=== PATIENT | male | born 1950 | race African-American/Black ===

== ENCOUNTER 2021-08-16 14:49 | Emergency (ER) | payer OTHER, MEDICARE, SELFPAY ==
[2021-08-16 14:58] VITALS: BP 133/59; PULSE 65; RESP 17; TEMP 36.7; O2SAT 96; BMI 18.4
--- NOTE | 2021-08-16 15:05 | W.ED.WEAKNES ---
HPI - Weakness General: Chief complaint: Weakness Stated complaint: N/V; WEAKNESS Time Seen by Provider: 08/16/21 14:55 History of Present Illness: HPI Narrative: This patient was transported to the emergency department by EMS. 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 He states he felt sick at his stomach and vomited dark coffee ground looking substance. He states that this happened several times. He states that he then got out of truck and attempted to go into the store and felt lightheaded and weak. EMS was then notified. He states that he is not any dark tarry stools or bloody stools. He does not drink alcohol. He does not smoke cigarettes occasionally smokes a cigar. He does not take nonsteroidals. He has no history of gastrointestinal bleeding. He is otherwise takes antihypertensives. Denies any chest pain shortness of breath etc. Associated symptoms: Reports vomiting; Denies chest pain, chills, melena, dysuria, easy bruising, fever(s) or headache(s) Review of Systems Const: Denies: fever(s) or chills Eyes: Denies: change in vision ENMT: Denies: throat pain, odynophagia or hoarseness Card: Denies: chest pain, palpitations, irregular heart rhythm or edema Resp: Denies: dyspnea, productive cough or non-productive cough GI: Reports: vomiting and coffee ground emesis; Denies: bloating, GI cramping, rectal swelling, rectal itching, hematochezia or melena : Denies: flank pain, difficulty urinating or dysuria Musc: Denies: neck pain, back pain, extremity pain, extremity swelling or joint swelling Skin/Breast: Denies: rash Neuro: Denies: headache(s), numbness in extremities, weakness in extremities, sensory changes or lack of coordination Psych: Denies: depression or mood swings Endo: Denies: polyuria or polydipsia Deon/Lymph: Denies: easy bruising or easy bleeding Physical Exam Const: COMMON NORMALS: patient oriented x3 and no limitations GENERAL APPEARANCE: cooperative ORIENTATION/CONSCIOUSNESS: Yes awake HENMT: COMMON NORMALS: normocephalic and Normal external nose present HEAD & SCALP: normal to inspection and normocephalic FACE & SINUS: normal facial exam NOSE: Normal external nose present THROAT: other (Mask per protocol) Eye: COMMON NORMALS: Equal, round and reactive pupils present, EOMs intact bilaterally and no scleral icterus PUPIL: Yes Equal, round and reactive pupils present Neck/C-Spine: COMMON NORMALS: full ROM, no lymphadenopathy, Thyroid normal and No carotid bruits THYROID: Thyroid normal Lymph: LYMPHATIC: no lymphadenopathy noted Chest: COMMONS NORMALS: normal inspection of the chest Resp: COMMON NORMALS: normal respiratory effort, No retractions, No use of accessory muscles and clear to auscultation bilaterally AUSCULTATION: clear to auscultation bilaterally Cardio: COMMON NORMALS: regular rate, No murmurs present (Cardio) and Peripheral pulses 2+ throughout RATE: regular rate PERIPHERAL PULSES: Peripheral pulses 2+ throughout GI: COMMON NORMALS: Normal to inspection, nondistended, normoactive bowel sounds present, Soft to palpation, non-tender, No hepatosplenomegaly present and no masses PALPATION: Yes Soft to palpation and Yes No hepatosplenomegaly present : COMMON NORMALS: Yes no CVA tenderness BLADDER/KIDNEY EXAM: Yes no CVA tenderness Back/Pelvis: COMMON NORMALS: no CVA tenderness, thoracic and lumbar spine normal to inspection, no thoracic nor lumbar tenderness and thoraco-lumbar ROM normal Extremity: COMMON NORMALS: normal to inspection, full ROM, capillary refill normal, no joint enlargement, no calf tenderness and no pedal edema Neuro: COMMON NORMALS: patient oriented x3, moves all extremities, no focal motor deficits and no sensory deficits noted SPEECH: speech normal GAIT: Yes Normal gait present Course Reevaluation(s): Reevaluation #1: Patient's labs are noted. He is anemic as well as has evidence of transaminitis. We will going proceed with a CT scan. Reevaluation #2: Patient is clinically improved. He has been drinking fluids without any difficulty. His vital signs are otherwise stable. I reviewed his current findings and imaging studies with the patient and discussed treatment options. I informed him that he would have to go to a larger facility which had capabilities to do ERCP and additional diagnostic work-up to evaluate his biliary tract. He acknowledged that discussion and then asked me to share that information with his on speaker phone. I did so. He would like to be discharged and his will pick him up either later tonight or first thing in the morning to take him home to [place] and at that point they will seek additional care at one of the larger facilities in that community. I will provide them with medical information regarding laboratories, imaging studies etc. so that they will have that available to them. He is currently clinically stable to be discharged and acknowledges the need for close follow-up. Vital Signs: Vital signs: Vital Signs Temperature 98.0 F 08/16/21 14:58 Pulse Rate 65 08/16/21 14:58 Respiratory Rate 17 08/16/21 14:58 Blood Pressure 133/59 08/16/21 14:58 Pulse Oximetry 96 08/16/21 14:58 MDM - Weakness Lab Data: Attestation: I reviewed the patient's lab results. Labs: Lab Results 08/16/21 08/16/21 08/16/21 15:15 15:15 15:15 WBC 6.0 10^3/uL 10^3/ uL (4.0-10.0) RBC 3.21 10^6/uL L 10 ^6/uL (4.1-5.3) Hgb 9.8 g/dL L g/dL (11.7-16.6) Hct 29.6 % L % (42.0-52.0) MCV 92.2 fl fl (80-94) MCH 30.5 pg pg (28.0-34.0) MCHC 33.1 g/dL g/dL (30.0-36.0) RDW 16.1 % H % (12.1-15.1) Plt Count 221 10^3/cmm 10^3 /cmm (130-400) MPV 10.0 fL fL (7.4-10.4) Neut % (Auto) 75.5 % % Lymph % (Auto) 9.4 % % [place] % (Auto) 11.9 % % Eos % (Auto) 1.7 % % Baso % (Auto) 0.8 % % Neut # (Auto) 4.56 10^3/uL 10^3 /uL (1.8-7.7) Lymph # (Auto) 0.6 10^3/uL L 10^ 3/uL (0.8-4.8) [place] # (Auto) 0.7 10^3/uL 10^3/ uL (0.2-0.9) Eos # (Auto) 0.1 10^3/uL 10^3/ uL (0.0-0.8) Baso # (Auto) 0.1 10^3/uL 10^3/ uL (0.0-0.1) Nucleated RBC % (a uto) 0 % % Nucleated RBCs # 0.0 /100WBC /100W BC PT 13.30 SECONDS SEC ONDS (12.1-14.9) INR 0.98 (0.8-1.2) Sodium 138 mmol/L mmol/L (136-145) Potassium 3.4 mmol/L L mmol /L (3.5-5.1) Chloride 101 mmol/L mmol/L (98-107) Carbon Dioxide 28 mmol/L mmol/L (22-29) Anion Gap 12.4 (5-19) BUN 12 mg/dL mg/dL (8-23) Creatinine 0.5 mg/dL L mg/dL (0.7-1.2) GFR Calculation Not Reportable Glucose 175 mg/dL H mg/dL (65-115) Calculated Osmolal ity 290 mOsm/kg mOsm/ kg (285-295) Calcium 8.1 mg/dL L mg/dL (8.5-10.5) Total Bilirubin 5.4 mg/dL H mg/dL (0.15-1.2) AST 128 U/L H U/L (0-40) ALT 271 U/L H U/L (0-41) Alkaline Phosphata se 257 IU/L H IU/L (40-130) Total Protein 5.5 g/dL L g/dL (6.6-8.7) Albumin 3.1 g/dL L g/dL (3.5-5.2) Globulin 2.4 g/dL g/dL (1.3-4.6) Urine Color Urine Appearance Urine pH Ur Specific Gravit y Urine Protein Urine Glucose (UA) Urine Ketones Urine Blood Urine Nitrate Urine Bilirubin Urine Urobilinogen Ur Leukocyte Rina ase Urine RBC Urine WBC Ur Squamous Epith Cells Amorphous Sediment Urine Bacteria Urine Mucus 08/16/21 15:15 WBC RBC Hgb Hct MCV MCH MCHC RDW Plt Count MPV Neut % (Auto) Lymph % (Auto) [place] % (Auto) Eos % (Auto) Baso % (Auto) Neut # (Auto) Lymph # (Auto) [place] # (Auto) Eos # (Auto) Baso # (Auto) Nucleated RBC % (a uto) Nucleated RBCs # PT INR Sodium Potassium Chloride Carbon Dioxide Anion Gap BUN Creatinine GFR Calculation Glucose Calculated Osmolal ity Calcium Total Bilirubin AST ALT Alkaline Phosphata se Total Protein Albumin Globulin Urine Color Dark yellow (Yellow) Urine Appearance Sl hazy (CLEAR) Urine pH 7 (5-7) Ur Specific Gravit y 1.015 (1.005-1.030) Urine Protein Trace (Negative) Urine Glucose (UA) Trace H (Normal) Urine Ketones 1+ H (Negative) Urine Blood Neg (Negative) Urine Nitrate Negative (Negative) Urine Bilirubin 2+ H (Negative) Urine Urobilinogen 4 mg/dL H mg/dL (Negative) Ur Leukocyte Rina ase Negative (Negative) Urine RBC None /hpf /hpf (0-2) Urine WBC Rare /hpf /hpf (0-5) Ur Squamous Epith Cells 0-4 /hpf H /hpf (0-5) Amorphous Sediment Trace /hpf /hpf Urine Bacteria Trace /hpf /hpf (NONE) Urine Mucus Trace /hpf /hpf Imaging Data^: CT Abd/Pel: Radiologist's impression: CT abdomen pelvis showed concerns for gallbladder wall thickening with sludge and ultrasound is recommended. No other acute pathology is noted at this time. 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 Discharge Plan Discharge Condition: Stable Prescriptions: New Zofran 4 mg tablet 4 mg PO Q8H 3 Days Qty: 9 RF: 0 Discharge Orders: Discharge ED (Routine); Ordered 08/16/21 Ordered By: Asael Murillo Discharge Diet: Advance as tolerated and Low Salt Discharge Activity: Limit activity as instructed Activity Restrictions/Additional Instructions: Upon return home call your physician to arrange additional evaluation and gastroenterology referral. This should be completed in the next 3 to 5 days. If you have worsening symptoms return to the nearest emergency department. We have prescribed medication to use for nausea. We have provided discs of your images and also your laboratory results for use by your physicians in [place]. Coding Level of Care Code ED Custom Ski Maker for Chg Fwd Exam Comprehensive
[2021-08-16 15:48] LABS: Basophils # 0.1 10^3/uL (0.0-0.1); Basophils % 0.8 %; Eosinophils # 0.1 10^3/uL (0.0-0.8); Eosinophils % 1.7 %; Hematocrit 29.6 % (42.0-52.0); Hemoglobin 9.8 g/dL (11.7-16.6); Lymphocytes # 0.6 10^3/uL (0.8-4.8); Lymphocytes % 9.4 %; Mean Corpuscular HGB Conc 33.1 g/dL (30.0-36.0); Mean Corpuscular Hemoglobin 30.5 pg (28.0-34.0); Mean Corpuscular Volume 92.2 fl (80-94); Monocytes # 0.7 10^3/uL (0.2-0.9); Monocytes % 11.9 %; Neutrophils # 4.56 10^3/uL (1.8-7.7); Neutrophils % 75.5 %; Nucleated Red Blood Cells % 0 %; Platelet Count 221 10^3/cmm (130-400); Red Blood Count 3.21 10^6/uL (4.1-5.3); Red Cell Distribution Width 16.1 % (12.1-15.1)
[2021-08-16] MEDS: pantoprazole 40 mg SDV IVP (15:48)
[2021-08-16 15:54] LABS: INR 0.98 (0.8-1.2)
[2021-08-16 15:59] LABS: Urine Appearance SL Hazy (CLEAR); Urine Color Dark Yellow (Yellow)
[2021-08-16 16:00] LABS: Add Urine Microscopic? YES; Bilirubin Urine 2+ (Negative); Blood Urine Neg (Negative); Glucose Urine UA Trace (Normal); Ketones Urine 1+ (Negative); Leukocyte Esterase Urine Negative (Negative); Nitrate Urine Negative (Negative); Protein Urine Trace (Negative); Specific Gravity, Urine 1.015 (1.005-1.030); Urobilinogen Urine 4 mg/dL (Negative); pH Urine 7 (5-7)
[2021-08-16 16:02] LABS: Amorphous Sediment Urine TRACE /hpf; Bacteria Urine TRACE /hpf; Mucus Urine TRACE /hpf; Squamous Epithelial Cell Urine 0-4 /hpf (0-5); WBC Urine RARE /hpf (0-5)
[2021-08-16 16:03] LABS: Add Urine Culture? No; Alanine Aminotransferase 271 U/L (0-41); Albumin Level 3.1 g/dL (3.5-5.2); Alkaline Phosphatase 257 IU/L (40-130); Anion Gap 12.4 (5-19); Aspartate Amino Transferase 128 U/L (0-40); Blood Urea Nitrogen 12 mg/dL (8-23); Calcium 8.1 mg/dL (8.5-10.5); Carbon Dioxide 28 mmol/L (22-29); Chloride 101 mmol/L (98-107); Globulin 2.4 g/dL (1.3-4.6); Glucose 175 mg/dL (65-115); Osmolality Calculated 290 mOsm/kg (285-295); Potassium 3.4 mmol/L (3.5-5.1); Sodium 138 mmol/L (136-145); Total Bilirubin 5.4 mg/dL (0.15-1.2); Total Protein 5.5 g/dL (6.6-8.7)
--- NOTE | 2021-08-16 16:28 | CTR_ITS ---
PROCEDURE INFORMATION: Exam: CT Abdomen And Pelvis With Contrast Exam date and time: 08/16/2021 4:28 PM Age: 70 years old Clinical indication: Abdominal pain; Additional info: Pain and transaminitis TECHNIQUE: Imaging protocol: Computed tomography of the abdomen and pelvis with contrast. Radiation optimization: All CT scans at this facility use at least one of these dose optimization techniques: automated exposure control; mA and/or kV adjustment per patient size (includes targeted exams where dose is matched to clinical indication); or iterative reconstruction. Contrast material: OMNI 300; Contrast volume: 75 ml; Contrast route: INTRAVENOUS (IV); COMPARISON: No relevant prior studies available. RADIATION DOSE METRICS: Total DLP (mGy-cm): 1349.02 FINDINGS: Lungs: Right lower lobe atelectasis. Liver: Normal. No mass. Gallbladder and bile ducts: Gallbladder appears somewhat prominent with suggestion of wall thickening and biliary sludge, ultrasound could further evaluate this. Intrahepatic biliary dilation. Pancreas: Pancreatic duct dilated to 6 mm without obstructing lesion. Spleen: Normal. No splenomegaly. Adrenal glands: Left adrenal 2.5 cm nodule, dedicated nonemergent adrenal imaging advised. Kidneys and ureters: Several right kidney cysts, negative for follow-up advised. Stomach and bowel: Large amount of poorly defined material in the stomach likely reflects ingested food contents, please correlate clinically. Appendix: No evidence of appendicitis. Intraperitoneal space: Unremarkable. No free air. No significant fluid collection. Vasculature: Unremarkable. No abdominal aortic aneurysm. Lymph nodes: Unremarkable. No enlarged lymph nodes. Urinary bladder: Unremarkable as visualized. Reproductive: Unremarkable as visualized. Bones/joints: Unremarkable. No acute fracture. Soft tissues: Unremarkable. CT/CT abdomen pelvis w con* [id number] IMPRESSION: 1. Gallbladder appears somewhat prominent with suggestion of wall thickening and biliary sludge, ultrasound could further evaluate this. 2. Pancreatic duct dilated to 6 mm without obstructing lesion. 3. Several right kidney cysts, negative for follow-up advised. 4. Left adrenal 2.5 cm nodule, dedicated nonemergent adrenal imaging advised. 5. Right lower lobe atelectasis. 6. Intrahepatic biliary dilation. 7. Large amount of poorly defined material in the stomach likely reflects ingested food contents, please correlate clinically. COMMENTS: Consistent with the [employer]'s Incidental Findings Committee white paper (J Am Eduardo Radiol 2018): Any incidental renal lesion less than 1 cm or classified as too small to characterize, or any incidental cystic renal lesion characterized as simple-appearing, is likely benign. No follow-up imaging is recommended for these lesions per consensus recommendations based on imaging criteria. Radiation Dose CTDIVOL = (mGy): DLP = 1349.02 (mGy-cm)
[2021-08-16] MEDS: iohexol 300 mg/mL 100 mL Btl IV (17:08)
--- NOTE | 2021-08-16 18:53 | USR_ITS ---
PROCEDURE INFORMATION: Exam: US Abdomen, Limited; Right Upper Quadrant Exam date and time: 08/16/2021 6:53 PM Age: 70 years old Clinical indication: Abdominal pain; Acute; Additional info: Ruq for gallbladder TECHNIQUE: Imaging protocol: US abdomen. Real time ultrasound with image documentation. Limited exam focused on the right upper quadrant. COMPARISON: CT abdomen pelvis w con* [id number] 08/16/2021 5:02 PM FINDINGS: Liver: There is a coarse hyperechoic echotexture of the hepatic parenchyma compatible with fibrofatty infiltration. There is dilatation the intrahepatic biliary tree. Gallbladder: Normal. No gallstones. There is no gallbladder wall thickening. Common bile duct: The common bile duct is prominent measuring 1.4 cm without evidence of gallstones or obstructing masses. Pancreas: There is dilatation of the main pancreatic duct. Right kidney: Normal. No mass. No hydronephrosis. US/US abdomen limited [id number] IMPRESSION: 1. Fibrofatty infiltration the liver 2. There is intra and extrahepatic biliary dilatation without evidence of obstructing gallstones or masses. There is dilatation of the main pancreatic duct is well. An ampullary obstruction cannot be excluded. Follow-up ERCP evaluation is suggested. Radiation Dose CTDIVOL = (mGy): DLP = (mGy-cm)
[2021-08-16 22:30] VITALS: BP 110/52; PULSE 69; RESP 18; O2SAT 98
== END 2021-08-16 22:37 | disposition home or self-care (01) ==
PROVIDERS: Emergency Provider Emergency Medicine
DX: R53.1 Weakness (principal)
CPT/HCPCS: 74177; 76705; 80053; 81001; 85025; 85610; 96374; 99283; C9113; Q9967